=== PATIENT | male | born 1945 | race Caucasian/White ===

== ENCOUNTER 2017-02-17 11:16 | Observation (INO) ==
[2017-02-17] MEDS ORDERED: Sodium Chloride 0.9% 1,000 ML PRIMARY IV ONE (11:25)
[2017-02-17] MEDS ORDERED: NORMAL SALINE 10 ML SYRINGE FLUSH IVP PRN ×2 (11:25→13:14)
--- NOTE | 2017-02-17 11:39 | PDOC ---
Seizure HPI - General Chief Complaint: Neurological Complaints Stated Complaint: seizure times 3 Date Seen by Provider: 02/17/17 Time Seen by Provider: 11:35 Source: POSITIVE: Patient Exam Limitations: POSITIVE: No limitations Nurse's Notes Reviewed & Considered: Yes - History of Present Illness Initial Comments: The patient is a 72-year-old male who presents to the emergency department by ambulance after he had 3 seizures. He was helping to break some ice to water some livestock this morning. He states that he started feeling cold and went inside. Shortly after that he had a seizure. By standards reported that he had 3 separate seizure events prior to EMS arrival. The patient does have a known history of seizure disorder however reports that he has not had a seizure in over 20 years. He states that he has not taken any seizure medication for the past 10 years. By the time EMS arrived the patient appeared to be somewhat postictal and had been incontinent of urine. He was awake otherwise and had no specific complaints other than feeling tired. On arrival here he is awake and alert. He denies any current headache, chest pain, numbness or weakness in his extremities. He does report just generalized weakness and he does feel cold. He states that he has not had any recent illness and has been feeling good prior to this event. He does not have any other significant medical history and takes no medications currently. - Patient Allergies Allergies/Adverse Reactions: Allergies 3 Allergy/AdvReac Type Severity Reaction Status Date / Time No Known Drug Allergies Allergy NOT Unverified 02/17/17 14:46 APPLICABLE Past Medical History Past Medical History Reviewed: Other (please comment) (As per HPI) ROS - Limitations ROS Limitations: No Limitations Constitution: REPORTS: Other (The patient does report generalized weakness and he still feels a little bit cold). DENIES: Fever Cardiovascular: DENIES: Chest Pain, Heart Racing, Heart Palpitations Respiratory: DENIES: Cough Non Productive, Cough Productive, Shortness Of Breath Neurological: DENIES: Headache, Numbness, Weakness Gastrointestinal: DENIES: Nausea, Vomitting, Diarrhea Musculoskeletal: REPORTS: Denies MS Symptoms Eyes: REPORTS: Denies Symptoms ENT: REPORTS: Denies Symptoms Seizure Exam - General Appearance General Appearance: POSITIVE: No Acute Distress, Alert, Confused (post-ictal) ( He is awake and alert and answers questions however he does still feel a little bit slow) - HEENT HEENT: POSITIVE: Head Inspection Nml, Eyes Inspection Nml, Ears Inspection Nml, PERRL, EOMI - Neck Neck: POSITIVE: Non Tender, Neck Supple, Trachea Midline - Respiratory Respiratory: POSITIVE: Chest Non Tender, Breath Sounds Normal, No Respiratory Distress - Cardiovascular Cardiovascular: POSITIVE: Regular Rate and Rhythm, Heart Sounds Normal Peripheral Pulses: Dorsalis-pedis (R): 2+, Dorsalis-pedis (L): 2+ - Abdomen Abdomen: Soft: (All Quadrants), Denies Tenderness: (All Quadrants), No Distention: (All Quadrants) - Skin Skin: POSITIVE: Intact, No Rash - Extremities Extremity: Normal ROM: (All Extremities), Normal Inspection: (All Extremities) - Neuro / Psych Higher Functions: POSITIVE: Oriented x3, Speech Normal (Slightly slow), Slow Cranial Nerves: POSITIVE: Normal As Tested Sensorimotor: POSITIVE: No Motor Deficits, No Sensory Deficits Seizure Progress - Results Reviewed by me Xrays/CTs/US Reviewed by me: Yes Discussed with Radiologist: Yes Radiology Findings: CT head is normal. Lab Results Reviewed by Me: Yes CBC and BMP: 02/17/17 11:26 02/17/17 11:26 EKG Interpretation:: POSITIVE: Normal Sinus Rhythm, Normal Rate, Normal Intervals, Normal QRS, Normal ST/T - Patient's Progress MDM / ED Course: On arrival to the ER the patient was still mildly postictal. He did not have any focal neurologic deficits. He does have a known history of seizure disorder and is not currently on any medications. He apparently had 3 separate seizure events prior to EMS arrival. He was loaded with Keppra 500 mg IV. He had no further seizure activity here in the emergency department. His head CT is normal per radiologist. Blood work is all unremarkable and EKG shows normal sinus rhythm with no acute ST segment or T-wave changes. I did discuss the patient with Dr. Robertson who is the neurologist on-call at [facility] [place]. He thought that Keppra would be a reasonable anticonvulsant and recommended 750 mg twice a day. He recommended outpatient follow-up. I discussed these findings and recommendation with the patient and his family. The [place] town and his family is concerned about sending him home. I did discuss the patient with Dr. Norris and he has agreed to admit the patient for observation. Patient Care Time - Estimated PCT Patient Care Time (In Minutes): 40 Vital Signs - Recent Vital Signs Vital Signs: Vital Signs (Last 8 hours) Temp Pulse Resp BP Pulse Ox 02/17/17 13:16 60 11 L 02/17/17 11:40 95.8 F L 66 18 148/74 96 - VS Reviewed Vital Signs Reviewed: Yes Discharge Clinical Impression: Seizure Discharge Disposition: Admit to Observation Condition: Fair
[2017-02-17 11:40] LABS: BASOPHILS # (AUTO) 0.07 10*3/UL; BASOPHILS % (AUTO) 1.4 % (0-1); EOSINOPHILS # (AUTO) 0.12 10*3/UL; EOSINOPHILS % (AUTO) 2.5 % (0-8); Hematocrit [HCT] 46.9 % (42.0-52.0); Hemoglobin [HGB] 15.7 g/dL (14.0-18.0); LYMPHOCYTES # (AUTO) 1.11 10*3/uL; MEAN CORPUSCULAR HEMOGLOBIN 30.1 PG (27-31); MEAN CORPUSCULAR HGB CONC 33.5 g/dL (33-37); MEAN PLATELET VOLUME 9.7 FL (7.4-12.2); MONOCYTES # (AUTO) 0.44 10*3/UL (0.3-0.8); NEUTROPHILS # (AUTO) 3.12 10*3/UL; RED BLOOD COUNT 5.21 10^6/uL (4.70-6.10)
[2017-02-17 11:47] LABS: PLATELET MORPHOLOGY COMMENT NORMAL MORPHOLOGY (NORM); RBC MORPHOLOGY COMMENT NORMAL MORPHOLOGY (NORM); WBC MORPHOLOGY COMMENT NORMAL MORPHOLOGY (NORM)
[2017-02-17 11:51] LABS: BUN/CREATININE RATIO 10.83 (6-20); SERUM ALBUMIN 4.6 g/dL (3.5-4.8)
--- NOTE | 2017-02-17 12:38 | DI ---
EXAM: CT Head Without Intravenous Contrast CLINICAL HISTORY: Physician Notes: Tech Comments: TECHNIQUE: Axial computed tomography images of the head/brain without intravenous contrast. COMPARISON: No relevant prior studies available. FINDINGS: Brain: There is no intracranial hemorrhage or mass effect. There are involutional and microvascular ischemic changes Ventricles: Unremarkable. No ventriculomegaly. Bones/joints: Unremarkable. No acute fracture. Soft tissues: Unremarkable. Sinuses: Unremarkable as visualized. No acute sinusitis. Mastoid air cells: Unremarkable as visualized. No mastoid effusion. IMPRESSION: No acute intracranial process
[2017-02-17] MEDS ORDERED: ACETAMINOPHEN 325 MG TABLET PO PRN (13:14)
[2017-02-17] MEDS ORDERED: DOCUSATE 100 MG CAPSULE PO PRN (13:14)
[2017-02-17] MEDS ORDERED: LORazepam 2 MG/1 ML VIAL IVP PRN ×2 (13:14→14:24)
[2017-02-17] MEDS ORDERED: LIDOCAINE W/ SODIUM BICARB 0.5 ML SYR SUBD PRN (13:14)
[2017-02-17] MEDS ORDERED: CALCIUM CARBONATE 500 MG (TUMS) CHEWABLE TABLET PO PRN (13:14)
[2017-02-17] MEDS ORDERED: ONDANSETRON 4 MG/2 ML VIAL IVP PRN (13:14)
[2017-02-17] MEDS ORDERED: Sodium Chloride 0.9% 1,000 ML PRIMARY IV SCH (14:45)
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
[2017-02-17] MEDS ORDERED: LevETIRAcetam Tab 500 MG TABLET PO SCH (21:00)
[2017-02-18] MEDS ORDERED: Influenza 17-18 Vaccine (6mo+) Quad 60mcg/0.5ml PF IM ONE (04:15)
--- NOTE | 2017-02-18 08:48 | EKG ---
[address] [address] Measurements Intervals [place] Rate: 67 P: 69 [place]: 147 QRS: 14 QRSD: 77 T: 46 QT: 387 QTc: 402 Interpretive Statements SINUS RHYTHM No previous ECG available for comparison Electronically Signed On 02-18-17 14:33:08 MST by Carlos Sanchez [email or web address]
[2017-02-18] MEDS ORDERED: LevETIRAcetam Tab 500 MG TABLET PO SCH (09:00)
[2017-02-18 11:39] VITALS: BP 118/59; RESP 17; TEMP 97; O2SAT 93
--- NOTE | 2017-02-18 14:51 | DCSUMMARY ---
Hospitalization Summary Admit Date: Discharge Date: 02/18/17 Primary Diagnosis:: Seizure Hospital Course: This is a 72 YO male that presents with seizure with known seizure disorder. He had not been on AED therapy in over 10 years and it had been nearly 15 years since his last seizure. Head CT was negative. No infectious symptoms. Per neurology recommendations, the patient was placed in keppra. Ativan was used in situations of seizure. By this AM, the patient felt miuch better, was alert , oriented, but fatigued. He had one seizure at the time of admission, but none since. No complaints of chest pain, SOB, N/V. Patient and family okay with patient going home. Disposition: discharged home. Diet: regular diet Activities: resume activities, but NO DRIVING. I splained this multiple times to the patient and his family. Follow Up: 1. see Dr. Casey in one week. 2. See Dr. Robertson or neurologist when possible Medicaitons: 1. keppra 750 mg PO bid 2. ativan 2 mg/mL, PRN seizure time spent, less then 30 minutes, for care, counseling, and coordination. Exam - Vitals Vital Signs: Vital Signs Temperature 97 F Temperature Source Temporal Artery Scan Pulse Rate [Pulse Oximeter] 71 Pulse Rate 72 Respiratory Rate 17 Blood Pressure [Left Arm] 118/59 Pulse Ox 93 Oxygen Flow Rate 2 Oxygen Delivery Method Room Air Height 5 ft 5 in Weight 154 lb 6.4 oz - General General Appearance: No Acute Distress, Cooperative - Head Head Exam: Normal Inspection, Normocephalic, Atraumatic - Eye Eye Exam: POSITIVE: No Scleral Icterus - Respiratory Respiratory Exam: POSITIVE: Clear to Auscultation - Bilaterally, Breathing Non Labored - Cardiovascular Cardiovascular Exam: POSITIVE: RRR, No Murmur, No Clicks, No Gallops, No Rubs, No JVD - GI/Abdominal GI/Abdominal Exam: POSITIVE: Normal Bowel Sounds, Non Tender, Non Distended, Soft - Extremities Extremities Exam: POSITIVE: No Clubbing Present, No Edema Present, No Cyanosis Present - Neurological Neurological Exam: POSITIVE: Alert, Oriented x 3, No Facial Droop, Speech Intact / Clear, Moves All Extremities Equally Data Peritnent Studies: CBC and BMP 02/17/17 11:26 02/17/17 11:[address] negative Patient Problems - Patient Problem List (1) Seizure Status: Acute Code(s): R56.9 - Unspecified convulsions Category: Medical (2) Seizure disorder Status: Acute Code(s): G40.909 - Epilepsy, unspecified, not intractable, without status epilepticus Category: Medical
== END 2017-02-18 13:27 | disposition home or self-care (01) ==
LOC: MED/SURG 11:16 → ER 11:16 → MED/SURG 13:25
PROVIDERS: ADMIT Family Medicine; ATTEND Family Medicine